=== PATIENT | female | born 1970 | race Caucasian/White ===

== ENCOUNTER 2020-04-02 14:56 | Outpatient (CLI) | payer BC ==
--- NOTE | 2020-04-02 15:48 | CT ---
CT CHEST WITHOUT CONTRAST: 04/02/20 INDICATIONS: Pulmonary fibrosis given as reason for exam. There are no comparison studies. FINDINGS: Lung foote show very mild interstitial thickening in the periphery of both lungs. Findings are not s uggestive of pulmonary fibrosis. There is no evidence of honeycombing or traction bronchiectasis. No significant parenchymal stranding. No evidence of infiltrate or effusion. No evidence of pulmonary nodule or mass. The mediastinum is unremarkable with no evidence of adenopathy. Upper abdomen unremarkable. Osseous s tructures unremarkable. IMPRESSION: Unremarkable chest CT. Very mild interstitial thickening in the periphery of both lungs. No evidence of idiopathic pulmonary fibrosis. POS: [facility]
== END 2020-04-02 14:57 | disposition home or self-care (01) ==
LOC: BICCT 14:56
PROVIDERS: ATTEND Nurse Practitioner Family
DX: J84.10 Pulmonary fibrosis, unspecified (principal)
CPT/HCPCS: 71250

== ENCOUNTER 2020-04-09 10:52 | Outpatient (CLI) | payer BC ==
--- NOTE | 2020-04-09 11:40 | MMO ---
Bilateral MAMMO Bilat Screen [facility]. CLINICAL HISTORY: Patient is 49 years old and is seen for screening. The patient has no family history of breast cancer. The patient has no personal history of cancer. VIEWS: The views performed were: bilateral craniocaudal with tomosynthesis and bilateral mediolateral oblique with tomosynthesis. FILMS COMPARED: The present examination has been compared to prior imaging studies performed at [facility] on 03/24/2016 and 04/01/2016. This study has been interpreted with the assistance of computer-aided detection. MAMMOGRAM FINDINGS: There are scattered fibroglandular densities. There are no suspicious masses, suspicious calcifications, or new areas of architectural distortion. IMPRESSION: THERE IS NO MAMMOGRAPHIC EVIDENCE OF MALIGNANCY. A ROUTINE FOLLOW-UP MAMMOGRAM IN 1 YEAR IS RECOMMENDED. THE RESULTS OF THIS EXAM WERE SENT TO THE PATIENT. ACR BI-RADS Category 1 - Negative MAMMOGRAPHY NOTE: 1. A negative mammogram report should not delay a biopsy if a dominant of clinically suspicious mass is present. 2. Approximately 10% to 15% of breast cancers are not detected by mammography. 3. Adenosis and dense breasts may obscure an underlying neoplasm. Reported by: DACIA NEVAREZ MD Electonically Signed: [id number]
== END 2020-04-09 10:53 | disposition home or self-care (01) ==
LOC: BICMAMMO 10:52
PROVIDERS: ATTEND Nurse Practitioner Family
DX: Z12.31 Encounter for screening mammogram for malignant neoplasm of breast (principal)
CPT/HCPCS: 77063; 77067